=== PATIENT | female | born 1995 | race American Indian/Alaskan Native ===

== ENCOUNTER 2020-06-26 10:20 | Emergency (ER) | payer SELFPAY ==
[2020-06-26 10:32] VITALS: BP 134/83
--- NOTE | 2020-06-26 10:44 | Emergency Department Report ---
ED Lower Extremity HPI - General Chief Complaint: Extremity Injury, Lower Stated Complaint: LT ANKLE INJURY Time Seen by Provider: 06/26/20 10:42 Source: patient Mode of arrival: Ambulatory Limitations: No Limitations - History of Present Illness MD Complaint: ankle injury, foot injury -: days(s) Injury: Ankle: Left, Foot: Left Place: home Severity: moderate Improves With: rest Worsens With: weight bearing, movement, palpation Associated Symptoms: able to partially bear weight - Related Data Allergies Allergy/AdvReac Type Severity Reaction Status Date / Time No Known Allergies Allergy Verified 06/26/20 10:50 ED Review of Systems ROS: Stated complaint: LT ANKLE INJURY Other details as noted in HPI Comment: All other systems reviewed and negative ED Past Medical Hx - Past Medical History Previous Medical History?: No - Surgical History Past Surgical History?: No - Social History Smoking Status: Never Smoker Substance Use Type: Marijuana ED Physical Exam - General Limitations: No Limitations General appearance: alert, in no apparent distress - Head Head exam: Present: atraumatic, normocephalic - Eye Eye exam: Present: normal appearance - ENT ENT exam: Present: mucous membranes moist - Neck Neck exam: Present: normal inspection - Respiratory Respiratory exam: Present: normal lung sounds bilaterally. Absent: respiratory distress - Cardiovascular Cardiovascular Exam: Present: regular rate, normal rhythm. Absent: systolic murmur, diastolic murmur, rubs, gallop - GI/Abdominal GI/Abdominal exam: Present: soft, normal bowel sounds - Extremities Exam Extremities exam: Present: normal inspection - Back Exam Back exam: Present: normal inspection - Neurological Exam Neurological exam: Present: alert, oriented X3 - Psychiatric Psychiatric exam: Present: normal affect, normal mood - Skin Skin exam: Present: warm, dry, intact, normal color. Absent: rash ED Course Vital Signs 06/26/20 10:27 Temperature 98.2 F Pulse Rate 71 Respiratory 18 Rate Blood Pressure 134/83 O2 Sat by Pulse 99 Oximetry ED Lower Extremity MDM - Radiology Data Radiology results: report reviewed [facility] [address] [place] [address] XRay Report Signed Patient: MARLO ESPINOZA R#: [id number] : 1995 Acct:[id number] Age/Sex: 24 / F ADM Date: 06/26/20 Loc: ED Attending Dr: Ordering Physician: KIZZY CAMPOS MD Date of Service: 06/26/20 Procedure(s): XR ankle 3+V LT Accession Number(s): [id number] cc: KIZZY CAMPOS MD Fluoro Time In Minutes: LEFT FOOT 3 VIEW(S) INDICATION / CLINICAL INFORMATION: Ankle injury COMPARISON: None available. FINDINGS: BONES / JOINT(S): No acute fracture or subluxation. No significant arthritis. SOFT TISSUES: No significant abnormality. ADDITIONAL FINDINGS: None. IMPRESSION: No acute osseous abnormality. Signer Name: Jaren Angelo MD Signed: 06/26/2020 11:37 AM Workstation Name: [id number] Transcribed By: SS Dictated By: JAREN ANGELO Electronically Authenticated By: JAREN ANGELO Signed Date/Time: 06/26/20 113 DD/ 34 TD/TT: Print Report Referring Physician:KAY MAURICEPatient Name:MARLO MURO NSPatient ID:[id number] of :[id number]:FemaleAccession:[id number] Date:[id number] Status:Finalized Findings [facility] [address] [place] [address] XRay Report Signed Patient: MARLO ESPINOZA R#: [id number] : 1995 Acct:[id number] Age/Sex: 24 / F ADM Date: 06/26/20 Loc: ED Attending Dr: Ordering Physician: RAISA BRIGGS Date of Service: 06/26/20 Procedure(s): XR foot 3+V LT Accession Number(s): [id number] cc: RAISA BRIGGS Fluoro Time In Minutes: LEFT FOOT 3 VIEW(S) INDICATION / CLINICAL INFORMATION: medial foot pain COMPARISON: None available. FINDINGS: BONES / JOINT(S): No acute fracture or subluxation. No significant arthritis. There is a type 2 or 3 accessory navicular. SOFT TISSUES: No significant abnormality. ADDITIONAL FINDINGS: None. IMPRESSION: 1. No acute osseous abnormality. 2. Type II or III accessory navicular. Painful accessory navicular syndrome is a possibility, and clinical correlation is recommended. 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 There is mild swelling and tenderness with mom palpation. Advised patient about rice therapy and anti-inflammatories as well as Александр wrapping and and and the appropriate activities. Also gave her some information on this issue she is very likely to have it again in the future. Critical care attestation.: If time is entered above; I have spent that time in minutes in the direct care of this critically ill patient, excluding procedure time. 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
[2020-06-26] MEDS ORDERED: ONDANSETRON 4 MG/2 ML INJ ONE (10:50)
--- NOTE | 2020-06-26 11:41 | XRay Report ---
LEFT FOOT 3 VIEW(S) INDICATION / CLINICAL INFORMATION: Ankle injury COMPARISON: None available. FINDINGS: BONES / JOINT(S): No acute fracture or subluxation. No significant arthritis. SOFT TISSUES: No significant abnormality. ADDITIONAL FINDINGS: None. IMPRESSION: No acute osseous abnormality. Signer Name: Cristofer Angelo MD Signed: 06/26/2020 11:37 AM Workstation Name: [id number]
--- NOTE | 2020-06-26 11:44 | XRay Report ---
LEFT FOOT 3 VIEW(S) INDICATION / CLINICAL INFORMATION: medial foot pain COMPARISON: None available. FINDINGS: BONES / JOINT(S): No acute fracture or subluxation. No significant arthritis. There is a type 2 or 3 accessory navicular. SOFT TISSUES: No significant abnormality. ADDITIONAL FINDINGS: None. IMPRESSION: 1. No acute osseous abnormality. 2. Type II or III accessory navicular. Painful accessory navicular syndrome is a possibility, and cli nical correlation is recommended. Signer Name: Cristofer Angelo MD Signed: 06/26/2020 11:40 AM Workstation Name: [id number]
== END 2020-06-26 12:54 | disposition home or self-care (01) ==
LOC: ED 10:20
DX: M79.672 Pain in left foot (principal); M25.59 Pain in other specified joint; F12.10 Cannabis abuse, uncomplicated
CPT/HCPCS: 99283; J2405